=== PATIENT | female | born 1975 | race African-American/Black ===

== ENCOUNTER 2020-01-15 16:40 | Emergency (ER) | payer MEDICAID ==
[~2020-01-15] VITALS: Ht 170.2 cm; Wt 91.0 kg
[2020-01-15 16:49] VITALS: BP 142/74
[2020-01-15] MEDS ORDERED: ALPR2TAB2 PO (16:51)
== END 2020-01-15 21:14 | disposition left against medical advice (07) ==
LOC: ER 16:40
DX: Z53.21 Procedure and treatment not carried out due to patient leaving prior to being seen by health care provider (principal); F41.9 Anxiety disorder, unspecified; I10 Essential (primary) hypertension